=== PATIENT | female | born 1945 | race Caucasian/White ===

== ENCOUNTER 2019-03-22 15:47 | Emergency (ER) | payer SELFPAY ==
[~2019-03-22] VITALS: Ht 142.2 cm; Wt 68.2 kg
[2019-03-22] MEDS ORDERED: METF-960 PO (15:55)
[2019-03-22] MEDS ORDERED: ASPI-1182 PO (15:55)
[2019-03-22] MEDS ORDERED: METO25 PO (15:55)
[2019-03-22] MEDS ORDERED: ATOR20TA86 PO (15:55)
[2019-03-22 17:11] LABS: BASOPHILS % (AUTO) 1.1 % (0.0-2.0); EOSINOPHILS % (AUTO) 3.3 % (1.0-6.0); HEMATOCRIT 37.3 % (36-46); HEMOGLOBIN 12.4 g/dL (12.0-16.0); LYMPHOCYTES # (AUTO) 1.7 K/uL (1.0-4.8); LYMPHOCYTES % (AUTO) 26.8 % (22.0-44.0); MEAN CORPUSCULAR HEMOGLOBIN 29.9 pg (26.0-34.0); MEAN CORPUSCULAR HGB CONC 33.3 G/dL (31.0-37.0); MEAN CORPUSCULAR VOLUME 90 fL (80-100); MONOCYTES # (AUTO) 0.6 K/uL (0.1-1.0); MONOCYTES % (AUTO) 9.2 % (2.0-9.0); NEUTROPHILS # (AUTO) 3.7 K/uL (1.8-7.7); NEUTROPHILS % (AUTO) 59.6 % (40.0-70.0); RED BLOOD CELL COUNT(AUTO) 4.15 MIL/uL (4.00-5.20); RED CELL DISTRIBUTION WIDTH 14.2 % (11.5-14.5)
[2019-03-22 17:39] LABS: CALCIUM, TOTAL 9.2 mg/dL (8.8-10.5); CREATININE 1.1 mg/dL (0.60-1.30); POTASSIUM 4.6 mmol/L (3.5-5.1)
[2019-03-22 17:45] LABS: ALBUMIN 3.9 g/dL (3.4-5.0); BILIRUBIN,TOTAL 0.4 mg/dL (0.1-1.0); TOTAL PROTEIN, SERUM 7.8 g/dL (6.4-8.2)
[2019-03-22 18:00] LABS: PLATELET COUNT (AUTO) 263 K/uL (150-450)
[2019-03-22 18:33] LABS: ERYTHROCYTE SEDIMENTATION RATE 10 MM/HR (0-20)
[2019-03-22] MEDS ORDERED: IBUPROFEN 400 MG TABLET PO ONE (18:45)
[2019-03-22 19:00] VITALS: BP 144/91
== END 2019-03-22 19:00 | disposition home or self-care (01) ==
LOC: EMS 15:49
DX: R51 Headache (principal); E11.9 Type 2 diabetes mellitus without complications; E78.00 Pure hypercholesterolemia, unspecified; I10 Essential (primary) hypertension; Z90.710 Acquired absence of both cervix and uterus; Z79.84 Long term (current) use of oral hypoglycemic drugs; Z79.82 Long term (current) use of aspirin
CPT/HCPCS: 70450; 85651